=== PATIENT | female | born 1960 | race African-American/Black ===

== ENCOUNTER 2018-08-22 22:56 | Emergency (ER) | payer OTHER ==
[~2018-08-22] VITALS: Ht 165.1 cm; Wt 90.7 kg
[2018-08-22 23:19] VITALS: BP 156/88
--- NOTE | 2018-08-22 23:19 | NUR ---
ED Nurse Note: Pt walked in c/o nosebleed, pt states she had initial episode at 8 pm and it went away but came back when she sneezed. pt currently doesn't have any bleeding at this time. pt resp even and unlabored on RA, airway intact. no nasal trauma noted. pt denies any injuries to nose. pt denies hx HTN, DM, denies taking any anticoagulants. pt reports she had cold about one week recently and has been cold medicine. will cont monitor.
[2018-08-22] MEDS ORDERED: Silver Nitrate Stick TOPIC ONE ×2 (23:39→23:45)
[2018-08-23] MEDS ORDERED: Bacitracin Oint UD TOPIC ONE ×2 (00:01)
--- NOTE | 2018-08-23 00:13 | Emergency Room Report ---
History of Present Illness General Chief Complaint: Nosebleed Source: Patient Present Illness [facility] This is a 58-year-old female who presents with chief complaint of nosebleed. Onset this evening. She just flew back from [place]. She also had a cold. She is been coughing and sneezing. Not on a anticoagulation. No fever chills but no nausea no vomiting. Bleeding stopped now. Allergies: Coded Allergies: WARFARIN (Verified Allergy, Unknown, 08/22/18) hives Patient History Past Medical History: see triage record, old chart reviewed Past Surgical History: other Pertinent Family History: none Social History: Denies: smoking Last Menstrual Period: 2008 Now: No Immunizations: other Reviewed Nursing Documentation: PMH: Agreed; PSxH: Agreed Nursing Documentation-PMH Past Medical History: No Stated History Review of Systems Eye: Denies: eye pain, blurred vision ENT: Denies: ear pain, nose congestion, throat swelling Respiratory: Denies: cough, shortness of breath Cardiovascular: Denies: chest pain, palpitations Gastrointestinal: Denies: abdominal pain, diarrhea, nausea, vomiting Musculoskeletal: Denies: back pain, joint pain Skin: Denies: rash Neurological: Denies: headache, numbness Endocrine: Denies: increased thirst, increased urine Hematologic/Lymphatic: Denies: easy bruising All Other Systems: negative except mentioned in HPI Physical Exam Vital Signs Date Time Temp Pulse Resp B/P (MAP) Pulse Ox O2 Delivery O2 Flow Rate FiO2 08/22/18 23:09 97.9 88 17 156/88 (110) 96 Room Air Vitals with high blood pressure Sp02 EP Interpretation: reviewed, normal General Appearance: well appearing, no apparent distress, alert Head: normocephalic, atraumatic Eyes: bilateral eye PERRL, bilateral eye EOMI ENT: hearing grossly normal, normal pharynx, other - Right nares: There is a small area of blushing on the septum and on the lateral aspect on the turbinate. No active bleeding. Neck: full range of motion, supple, no meningismus Respiratory: chest non-tender, lungs clear, normal breath sounds Cardiovascular #1: regular rate, rhythm, no murmur Gastrointestinal: normal bowel sounds, non tender, no mass, no organomegaly, no bruit, non-distended Musculoskeletal: back normal, gait/station normal, normal range of motion Psychiatric: mood/affect normal Procedures Additional Procedure Procedure Narrative Procedure: Epistaxis control Indication: Epistaxis Description: I cauterized the right nares with silver nitrate. Bleeding controlled. Patient tolerated procedure without any problem. Medical Decision Making Diagnostic Impression: Primary Impression: Epistaxis ER Course Patient presents with epistaxis. This is anterior bleeding. Blood pressure improved. Will discharge home. Last Vital Signs Date Time Temp Pulse Resp B/P (MAP) Pulse Ox O2 Delivery O2 Flow Rate FiO2 08/22/18 23:19 97.9 85 17 156/88 96 Room Air Status: improved Disposition: HOME, SELF-CARE Condition: Stable Referrals: NOT CHOSEN IPA/,REFERRING (PCP) Patient Instructions: Nosebleed, [id number] Additional Instructions: Hold pressure of bleeding. Apply a dab of Vaseline or antibiotic ointment on each naris twice a day. Follow-up with your doctor in 7 days. Return if worse. Ken Shell MD Aug 23, 2018 00:13
[2018-08-23 00:20] VITALS: BP 148/76
--- NOTE | 2018-08-23 00:20 | NUR ---
ED Nurse Note: pt cleared to be d/c per ERMD, pt discharge and aftercare instruction provided, pt advised to follow up with pcp or return to ed if changes in condition, pt verbalized understanding and agrees with plan, vss, ambulatory w/steady gait, id band removed, pt accompanied by daughter and left w/ all belongings.
== END 2018-08-23 00:20 | disposition home or self-care (01) ==
LOC: EMR 23:43
DX: R07.0 Pain in throat (principal); Z88.8 Allergy status to other drugs, medicaments and biological substances; R05 Cough
CPT/HCPCS: 99283